=== PATIENT | male | born 1985 | race Caucasian/White ===

== ENCOUNTER 2018-10-13 22:53 | Emergency (ER) | payer OTHER ==
[~2018-10-13] VITALS: Ht 175.3 cm; Wt 79.4 kg
[2018-10-13 23:41] LABS: HEMATOCRIT 37.2 % (42.0-52.0); HEMOGLOBIN 12.8 gm/dL (14.0-18.0); MCH 32.7 pg (26.0-34.0); MCHC 34.5 g/dL (28.0-37.0); MCV 94.8 fL (80.0-100.0); RBC 3.92 mil/uL (4.50-6.00); RDW 12.5 % (10.5-14.5); WBC 10.9 thou/uL (4.0-11.0)
[2018-10-13 23:43] LABS: CREATININE 1.2 mg/dL (0.7-1.3); POTASSIUM 3.7 mmol/L (3.5-5.1)
[2018-10-14 10:50] LABS: AMP/METHAMP POSITIVE (Negative); BARBITURATES Negative (Negative); BENZODIAZEPINES Negative (Negative); COCAINE Negative (Negative); METHADONE Negative (Negative); OPIATES Negative (Negative); PCP Negative (Negative)
[2018-10-14 11:43] VITALS: BP 115/76
== END 2018-10-14 11:46 | disposition home or self-care (01) ==
LOC: ER 22:53
PROVIDERS: Emergency Medicine
DX: F15.159 Other stimulant abuse with stimulant-induced psychotic disorder, unspecified (principal); F29 Unspecified psychosis not due to a substance or known physiological condition; F17.210 Nicotine dependence, cigarettes, uncomplicated